=== PATIENT | female | born 1990 | race Caucasian/White ===

== ENCOUNTER 2017-08-28 19:59 | Emergency (ER) | payer BC ==
[~2017-08-28] VITALS: Ht 154.9 cm; Wt 77.4 kg
[~2017-08-28 19:59] MED LIST: ETONMIS VAGRING; MECL-91 PEG
[2017-08-28 20:03] VITALS: TEMP 36.6; Ht 154.9 cm; Wt 77.4 kg
[2017-08-28] MEDS ORDERED: DiphenhydrAMINE HCL 50 MG/ML VIAL IV STA (20:32)
[2017-08-28] MEDS ORDERED: METHYLPREDNISOLONE IV 40 MG in SYRINGE 0 ML IV STA (20:32)
--- NOTE | 2017-08-28 20:38 | EMERGENCY ROOM VISIT NOTE ---
History Report prepared by Urvashi: Manasa Xie Under the Supervision of: Dr. Patsy Forrest D.O. First contact with patient: 20:22 Chief Complaint: DIZZY Stated Complaint: LIGHT HEADED, SHAKEY, SPINNING ROOM, VOMITING Nursing Triage Summary: Patient reports dizziness, nausea, vomiting, and headache for the past 2 weeks. Also reports having trouble focusing eyes. History of Present Illness The patient is a 26 year old female who presents to the Emergency Room with complaints of dizziness occurring over the last 2 weeks. The patient reports that over the last couple of weeks she has been nauseous, vomiting, light-headed , and shaky. She also reports having visual changes and headaches. She denies having a history of migraines and states that she does not get headaches often. She states that these episodes begin with dizziness and light-headedness and then she vomits and then starts to develop a headache. The patient states that she has been weaker and more fatigued recently. The patient states that she has had episodes like this about every other day and when she has an episode her symptoms usually last for about 2 days. She states that she tried to see her primary care physician but that she was unable to get in. The patient reports a family history of diabetes. She denies any recent trauma or change in her activity. Pt denies fevers, chest pain, shortness of breath, diarrhea, pain with urination, and melena. Source of History: patient Onset: the last 2 weeks Position: other (generalized ) Quality: other (dizziness ) Associated Symptoms: + headache, + nausea, + vomiting, + fatigue, + weakness , No fevers Note: additional symptom: visual changes Review of Systems See HPI for pertinent positives & negatives. A total of 10 systems reviewed and were otherwise negative. Past Medical & Surgical Medical Problems: (1) Anxiety Family History Diabetes mellitus Social History Smoking Status: Current Every Day Smoker Occupation Status: employed Current/Historical Medications Scheduled Etonogestrel/Ethinyl Estradiol (Nuvaring), 1 EA VAGRING MONTHLY Ondasetron Odt (Zofran Odt), 4 MG SL Q8 Scheduled PRN Meclizine Hcl (Meclizine Hcl), 1 TAB PO TID PRN for Dizziness or Vertigo Allergies Coded Allergies: Shellfish (Verified Allergy, Intermediate, "MAKES ME SICK", 08/28/17) Iodinated Diagnostic Agents (Verified Adverse Reaction, Severe, HIVES, ) Uncoded Allergies: NUMEROUS FOOD INTOLERANCES (Allergy, Unknown, N/V, ABDOMINAL CRAMPING, ) LETTUCE, BROCCOLI, CAULIFLOWER, TUNA, DAIRY, PASTASIOS, ORANGES, BANANAS, GRAPEFRUIT, TURKEY AND BEEF Physical Exam Vital Signs Date Time Temp Pulse Resp B/P (MAP) Pulse Ox O2 Delivery O2 Flow Rate FiO2 08/28/17 23:41 78 16 115/76 97 Room Air 08/28/17 22:26 91 08/28/17 22:10 91 21 107/67 100 Room Air 08/28/17 20:03 36.6 108 18 147/103 100 Room Air Physical Exam GENERAL: alert, well appearing, well nourished, no distress, non-toxic EYE EXAM: normal conjunctiva, PERRL and EOM's grossly intact OROPHARYNX: no exudate, no erythema, lips, buccal mucosa, and tongue normal and mucous membranes are moist NECK: supple, no nuchal rigidity, no adenopathy, non-tender LUNGS: Clear to auscultation. Normal chest wall mechanics, no w/r/r HEART: no murmurs, S1 normal and S2 normal ABDOMEN: abdomen soft, non-tender, normo-active bowel sounds, no masses, no rebound or guarding. BACK: Back is symmetrical on inspection and there is no deformity, no midline tenderness, no CVA tenderness. SKIN: no rashes and no bruising UPPER EXTREMITIES: upper extremities are grossly normal. Full range of motion, normal pulses. LOWER EXTREMITIES: No pitting edema. Full range of motion, normal pulses. NEURO EXAM: Normal sensorium, cranial nerves II-XII grossly intact, normal speech, no gross weakness of arms, no gross weakness of legs. No drift. Finger to nose intact. Heel to aguilera normal. Gross sensation intact. Normal gait. Medical Decision & Procedures ER Provider Diagnostic Interpretation: Radiology results have been interpreted by the radiologist and reviewed by me. CHEST ONE VIEW PORTABLE CLINICAL HISTORY: dizzy, vomiting COMPARISON STUDY: Chest radiograph February 27, 2017. FINDINGS: Lung volumes are normal. Lungs are clear. No pneumothorax or pleural effusion is noted. Pulmonary vascularity is normal. Cardiomediastinal silhouette is unremarkable. IMPRESSION: No acute cardiopulmonary findings. Electronically signed by: Gustavo Osei M.D. 08/28/2017 9:11 PM Dictated Date/Time: 08/28/2017 9:10 PM ANGIOGRAPHY HEAD COMBO CLINICAL HISTORY: Headaches, dizziness and vomiting. COMPARISON STUDY: No previous studies for comparison. TECHNIQUE: Patient was premedicated for IV dye allergy as per ER protocol. Unenhanced and arterial phase imaging of the head was performed. Injection of 95 cc of Optiray 320 IV was uneventful. Sagittal and coronal reconstructed reviewed as well as maximal intensity projections on an independent 3-D workstation. FINDINGS: No acute intracranial hemorrhage, midline shift or mass effect is present. Brain volume is normal. Ventricular system is normal. Basilar cisterns are patent. There are no extra-axial collections. A 7 mm left basal ganglia hypodensity favors a prominent perivascular space. There are no findings to suggest acute dural sinus thrombosis or acute territorial infarct. There are no significant calvarial abnormalities. Visualized portions of the sinuses and mastoid air cells are clear. The bilateral M1, M2, A1 and A2 segments are patent. There is no intracranial aneurysm or dissection. There is persistence of the left posterior cerebral artery. The posterior circulation is intact. No abrupt vessel cut off is identified. IMPRESSION: 1. No acute intracranial findings. 2. Unremarkable CTA of the head. Electronically signed by: Gustavo Osei M.D. 08/28/2017 11:07 PM Dictated Date/Time: 08/28/2017 11:00 PM Laboratory Results 08/28/17 20:50 Red Blood Count 4.71, Mean Corpuscular Volume 90.7, Mean Corpuscular Hemoglobin 30.8, Mean Corpuscular Hemoglobin Concent 34.0, Mean Platelet Volume 10.2, Neutrophils (%) (Auto) 61.7, Lymphocytes (%) (Auto) 29.2, Monocytes (%) (Auto) 7.8, Eosinophils (%) (Auto) 0.9, Basophils (%) (Auto) 0.2, Neutrophils # (Auto) 5.58, Lymphocytes # (Auto) 2.64, Monocytes # (Auto) 0.71, Eosinophils # (Auto) 0.08, Basophils # (Auto) 0.02 08/28/17 20:50 Test 08/28/17 20:50 White Blood Count 9.05 K/uL (4.8-10.8) Red Blood Count 4.71 M/uL (4.2-5.4) Hemoglobin 14.5 g/dL (12.0-16.0) Hematocrit 42.7 % (37-47) Mean Corpuscular Volume 90.7 fL (80-100) Mean Corpuscular Hemoglobin 30.8 pg (25-34) Mean Corpuscular Hemoglobin Concent 34.0 g/dl (32-36) Platelet Count 327 K/uL (130-400) Mean Platelet Volume 10.2 fL (7.4-10.4) Neutrophils (%) (Auto) 61.7 % Lymphocytes (%) (Auto) 29.2 % Monocytes (%) (Auto) 7.8 % Eosinophils (%) (Auto) 0.9 % Basophils (%) (Auto) 0.2 % Neutrophils # (Auto) 5.58 K/uL (1.4-6.5) Lymphocytes # (Auto) 2.64 K/uL (1.2-3.4) Monocytes # (Auto) 0.71 K/uL (0.11-0.59) Eosinophils # (Auto) 0.08 K/uL (0-0.5) Basophils # (Auto) 0.02 K/uL (0-0.2) RDW Standard Deviation 43.2 fL (36.4-46.3) RDW Coefficient of Variation 13.1 % (11.5-14.5) Immature Granulocyte % (Auto) 0.2 % Immature Granulocyte # (Auto) 0.02 K/uL (0.00-0.02) Prothrombin Time 9.2 SECONDS (9.0-12.0) Prothromb Time International Ratio 0.9 (0.9-1.1) Urine Color YELLOW Urine Appearance CLEAR (CLEAR) Urine pH 5.5 (4.5-7.5) Urine Specific Kathryn 1.012 (1.000-1.030) Urine Protein NEG (NEG) Urine Glucose (UA) NEG (NEG) Urine Ketones NEG (NEG) Urine Occult Blood NEG (NEG) Urine Nitrite NEG (NEG) Urine Bilirubin NEG (NEG) Urine Urobilinogen NEG (NEG) Urine Leukocyte Esterase NEG (NEG) Anion Gap 7.0 mmol/L (3-11) Est Creatinine Clear Calc Drug Dose 99.6 ml/min Estimated GFR () 116.1 Estimated GFR (Non- 100.2 BUN/Creatinine Ratio 9.4 (10-20) Calcium Level 8.5 mg/dl (8.5-10.1) Magnesium Level 2.3 mg/dl (1.8-2.4) Total Bilirubin 0.3 mg/dl (0.2-1) Aspartate Amino Transf (AST/SGOT) 15 U/L (15-37) Alanine Aminotransferase (ALT/SGPT) 17 U/L (12-78) Alkaline Phosphatase 80 U/L (45-117) Troponin I < 0.015 ng/ml (0-0.045) Total Protein 7.5 gm/dl (6.4-8.2) Albumin 3.5 gm/dl (3.4-5.0) Globulin 4.0 gm/dl (2.5-4.0) Albumin/Globulin Ratio 0.9 (0.9-2) Thyroid Stimulating Hormone (TSH) 3.230 uIu/ml (0.300-4.500) Human Chorionic Gonadotropin, Qual NEG (NEG) Lyme Disease IgG Antibody NEG (NEG) Lyme Disease IgM Antibody NEG (NEG) Laboratory results per my review. Medications Administered Medications (Trade) Dose Ordered Sig/Bree Route Start Time Stop Time Status Last Admin Dose Admin Diphenhydramine HCl (Benadryl Inj) 25 mg NOW STAT IV 08/28/17 20:32 08/28/17 20:38 DC 08/28/17 22:06 25 MG Methylprednisolone Sodium Succinate 40 mg/Syringe 0.64 ml @ 1.5 mls/min NOW STAT IV 08/28/17 20:32 08/28/17 20:38 DC 08/28/17 22:07 1.5 MLS/MIN Ketorolac Tromethamine (Toradol Inj) 30 mg NOW STAT IV 08/28/17 23:24 08/28/17 23:26 DC 08/28/17 23:40 30 MG Ondansetron HCl (Zofran Inj) 4 mg NOW STAT IV 08/28/17 23:24 08/28/17 23:26 DC 08/28/17 23:40 4 MG Meclizine HCl (Antivert Tab) 25 mg NOW STAT PO 08/28/17 23:24 08/28/17 23:26 DC 08/28/17 23:40 25 MG ECG Per My Interpretation Indication: weakness Rate (beats per minute): 94 Rhythm: sinus rhythm Findings: no acute ischemic change, no ectopy, other (normal axis, normal intervals ) ED Course 2027: The patient was evaluated in room C4. A complete history and physical exam was performed. 2031: Ordered Methylprednisolone Sodium Succinate 40 mg/Syringe 0.63 ml @ 1.5 mls/min IV, Benadryl Inj 25 mg IV. 2308: Patient updated on all results. 0000: Patient beginning to feel improved. Patient would like to go. 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 Medical Decision The patient is a 26 year old female who presents to the ED with complaints of dizziness. Differential diagnosis: Etiologies such as benign positional vertigo, dehydration, hypovolemia, anemia, tumor, infection, hypoglycemia, electrolyte abnormalities, cardiac sources, intracerebral event, toxicologic, neurologic, migraine headache, meningitis, sinusitis, CO exposure, ICH, SAH, infection, tumor, headache, sinus thrombosis, arterial dissection, as well as others were entertained. Patient well-appearing here despite complaints. Atypical presentation and unknown etiology given history. Labs and imaging here all reassuring and patient with a normal nonfocal neuro exam at bedside. Patient ambulated her with a steady gait was tolerating p.o. Vital signs stable throughout. Discussed with patient continued follow-up with neurology and in the interim follow-up with her family doctor until she can see her neurologist. Discussed with patient symptoms to watch and return for, patient reported improvement here following additional medications, and was given medications to try at home. Discussed with her possible migraine etiology given constellation of symptoms. I do not suspect occult cerebellar pathology, infectious etiology. I do not feel patient required lumbar puncture at this time. Medication Reconcilliation Current Medication List: was personally reviewed by me Blood Pressure Screening Patient's blood pressure: Elevated blood pressure Blood pressure disposition: Referred to PCP Impression Primary Impression: Headache Additional Impressions: Dizziness Nausea & vomiting Scribe Attestation The scribe's documentation has been prepared under my direction and personally reviewed by me in its entirety. I confirm that the note above accurately reflects all work, treatment, procedures, and medical decision making performed by me. Departure Information Dispostion Home / Self-Care Prescriptions Meclizine Hcl (MECLIZINE HCL) 25 Mg Tab 1 TAB PO TID Y for Dizziness or Vertigo, #20 TAB Prov: Patsy Forrest, DO 08/29/17 Ondasetron Odt (ZOFRAN ODT) 4 Mg Tab 4 MG SL Q8 for Nausea, #20 TAB Prov: Patsy Forrest, DO 08/29/17 Referrals No Doctor, Assigned (PCP) Patient Instructions My [facility] Additional Instructions Please keep your appointment to follow-up with neurology. Please try to keep a headache journal and try to determine a pattern to or trigger for your episodes of headache and dizziness. You may use the nausea medicine as needed. You may try the dizziness medication as needed also. If you have any worsening headache , dizziness, persistent vomiting, develop fevers, worsening vision changes, or you have any other new or concerning symptoms, please return to the emergency room. Problem Qualifiers Primary Impression: Headache Headache type: unspecified Headache chronicity pattern: episodic headache Intractability: not intractable Qualified Codes: R51 - Headache Additional Impressions: Nausea & vomiting Vomiting type: unspecified Vomiting Intractability: non-intractable Qualified Codes: R11.2 - Nausea with vomiting, unspecified
--- NOTE | 2017-08-28 21:12 | DIAGNOSTIC IMAGING REPORT ---
CHEST ONE VIEW PORTABLE CLINICAL HISTORY: dizzy, vomiting COMPARISON STUDY: Chest radiograph February 27, 2017. FINDINGS: Lung volumes are normal. Lungs are clear. No pneumothorax or pleural effusion is noted. Pulmonary vascularity is normal. Cardiomediastinal silhouette is unremarkable. IMPRESSION: No acute cardiopulmonary findings. Electronically signed by: Gustavo Osei M.D. 08/28/2017 9:11 PM Dictated Date/Time: 08/28/2017 9:10 PM
[2017-08-28 21:18] LABS: BASO % 0.2 %; BASO ABS # 0.02 K/uL (0-0.2); EOS % 0.9 %; EOS ABS # 0.08 K/uL (0-0.5); HEMATOCRIT 42.7 % (37-47); HEMOGLOBIN 14.5 g/dL (12.0-16.0); IG# 0.02 K/uL (0.00-0.02); LYMPH % 29.2 %; LYMPH ABS # 2.64 K/uL (1.2-3.4); MEAN CELL VOLUME 90.7 fL (80-100); MEAN CORPUSCULAR HEMOGLOBIN 30.8 pg (25-34); MEAN PLATELET VOLUME 10.2 fL (7.4-10.4); MONO % 7.8 %; MONO ABS # 0.71 K/uL (0.11-0.59); NEUT % 61.7 %; NEUT ABS # 5.58 K/uL (1.4-6.5); PLATELET COUNT 327 K/uL (130-400); RED CELL DISTRIBUTION WIDTH CV 13.1 % (11.5-14.5); RED CELL DISTRIBUTION WIDTH SD 43.2 fL (36.4-46.3); WHITE BLOOD COUNT 9.05 K/uL (4.8-10.8)
[2017-08-28 21:32] LABS: INR 0.9 (0.9-1.1)
[2017-08-28 21:34] LABS: ALBUMIN 3.5 gm/dl (3.4-5.0); ALT/SGPT 17 U/L (12-78); AST/SGOT 15 U/L (15-37); BLOOD UREA NITROGEN 8 mg/dl (7-18); CALCIUM 8.5 mg/dl (8.5-10.1); CARBON DIOXIDE 23 mmol/L (21-32); CREATININE 0.82 mg/dl (0.60-1.20); GLUCOSE 79 mg/dl (70-99); POTASSIUM 3.8 mmol/L (3.5-5.1); SODIUM 137 mmol/L (136-145)
[2017-08-28 21:45] LABS: ALKALINE PHOSPHATASE 80 U/L (45-117); TOTAL PROTEIN 7.5 gm/dl (6.4-8.2)
[2017-08-28] MEDS ORDERED: OPTIRAY 320 IV PRN (23:00)
--- NOTE | 2017-08-28 23:08 | DIAGNOSTIC IMAGING REPORT ---
ANGIOGRAPHY HEAD COMBO CLINICAL HISTORY: Headaches, dizziness and vomiting. COMPARISON STUDY: No previous studies for comparison. TECHNIQUE: Patient was premedicated for IV dye allergy as per ER protocol. Unenhanced and arterial phase imaging of the head was performed. Injection of 95 cc of Optiray 320 IV was uneventful. Sagittal and coronal reconstructed reviewed as well as maximal intensity projections on an independent 3-D workstation. FINDINGS: No acute intracranial hemorrhage, midline shift or mass effect is present. Brain volume is normal. Ventricular system is normal. Basilar cisterns are patent. There are no extra-axial collections. A 7 mm left basal ganglia hypodensity favors a prominent perivascular space. There are no findings to suggest acute dural sinus thrombosis or acute territorial infarct. There are no significant calvarial abnormalities. Visualized portions of the sinuses and mastoid air cells are clear. The bilateral M1, M2, A1 and A2 segments are patent. There is no intracranial aneurysm or dissection. There is persistence of the left posterior cerebral artery. The posterior circulation is intact. No abrupt vessel cut off is identified. IMPRESSION: 1. No acute intracranial findings. 2. Unremarkable CTA of the head. Electronically signed by: Gustavo Osei M.D. 08/28/2017 11:07 PM Dictated Date/Time: 08/28/2017 11:00 PM
[2017-08-28] MEDS ORDERED: ONDANSETRON INJ 2 MG/ML 2 ML VIAL IV STA (23:24)
[2017-08-28] MEDS ORDERED: KETOROLAC TROMETHAMINE 30 MG/ML VIAL IV STA (23:24)
[2017-08-28] MEDS ORDERED: MECLIZINE HCL 25 MG TAB PO STA (23:24)
[2017-08-28 23:41] VITALS: BP 115/76; PULSE 78; O2SAT 97
[2017-08-29] MEDS ORDERED: ONDANSETRON HOME PACK 4MG OD TAB PO ONE
[2017-08-29] MEDS ORDERED: ONDA4TAB10 SL (00:03)
[2017-08-29] MEDS ORDERED: MECL1TAB42 PO (00:03)
[2017-08-29] MEDS ORDERED: MECLIZINE HCL 25MG HOME PACK PO ONE (00:15)
== END 2017-08-29 00:10 | disposition home or self-care (01) ==
LOC: C.EDB 20:00 → C.EDC 08-29 00:10
DX: R51 Headache (principal); R42 Dizziness and giddiness; R11.2 Nausea with vomiting, unspecified; F17.200 Nicotine dependence, unspecified, uncomplicated; Z83.3 Family history of diabetes mellitus; Z91.013 Allergy to seafood; Z91.041 Radiographic dye allergy status; Z91.018 Allergy to other foods